=== PATIENT | female | born 1960 | race Hispanic/Latino ===

== ENCOUNTER → 2016-07-02 | Outpatient (REF) | payer OTHER ==
[~2016-07-02] MED LIST: /GLIP10TAB OR; ACTO15TA OR; BYSTOLIC OR; CALCTAB22 OR; CARD4TAB2 OR; GLUC1000 OR; HYDR50TA7 OR; INSULANT SC; LIPI20TA OR; NOVOINJ3 SC; VASO20TA OR; VITAMIN D50000 UNT OR; [UNRECOGNIZED DRUG - REMARK] TOP
[2016-07-02 17:35] LABS: MEAN CORPUSCULAR HEMOGLOBIN 28.9 pg (27.0-33.0); MEAN CORPUSCULAR HGB CONC 32.1 g/dl (32.0-36.5); MEAN CORPUSCULAR VOLUME 89.9 fl (80.0-96.0); RED CELL DISTRIBUTION WIDTH 12.6 % (11.5-14.5); WHITE BLOOD COUNT 6.4 K/mm3 (4.0-10.0)
[2016-07-02 17:38] LABS: ALBUMIN 3.6 GM/DL (3.2-5.2); CALCIUM LEVEL 9.4 MG/DL (8.5-10.1); CREATININE FOR GFR 2.01 MG/DL (0.55-1.02); GLOMERULAR FILTRATION RATE 27.3 (>51); PHOSPHORUS LEVEL 3.7 MG/DL (2.5-4.9); POTASSIUM SERUM 4.6 MEQ/L (3.5-5.1)
== END ==
LOC: M LABDRAW1 16:38
PROVIDERS: ATTEND Nurse Practitioner Family
DX: N18.3 Chronic kidney disease, stage 3 (moderate) (principal); D63.1 Anemia in chronic kidney disease; N25.81 Secondary hyperparathyroidism of renal origin

== ENCOUNTER → 2016-07-02 | Outpatient (REF) | payer OTHER | LOC: M LABDRAW1 16:37 | PROVIDERS: ATTEND Physician Assistant Medical | DX: E11.22 Type 2 diabetes mellitus with diabetic chronic kidney disease (principal); E78.00 Pure hypercholesterolemia, unspecified ==

== ENCOUNTER → 2016-08-10 | Outpatient (REF) | payer OTHER ==
[2016-08-10 12:19] LABS: ALBUMIN 3.5 GM/DL (3.2-5.2); ALBUMIN/GLOBULIN RATIO 0.92 (1.00-1.93); BILIRUBIN,TOTAL 0.2 MG/DL (0.2-1.0); CALCIUM LEVEL 9.1 MG/DL (8.5-10.1); CREATININE FOR GFR 1.52 MG/DL (0.55-1.02); GLOMERULAR FILTRATION RATE 37.7 (>51); POTASSIUM SERUM 3.8 MEQ/L (3.5-5.1); TOTAL PROTEIN 7.3 GM/DL (6.4-8.2)
== END ==
LOC: M LABDRAW1 11:26
PROVIDERS: ATTEND Family Medicine
DX: E78.2 Mixed hyperlipidemia (principal); I10 Essential (primary) hypertension; E11.22 Type 2 diabetes mellitus with diabetic chronic kidney disease

== ENCOUNTER → 2017-01-14 | Outpatient (REF) | payer OTHER | LOC: M LABDRAW1 15:39 | PROVIDERS: ATTEND Family Medicine | DX: Z13.89 Encounter for screening for other disorder (principal); I10 Essential (primary) hypertension ==

== ENCOUNTER → 2017-04-09 | Outpatient (CLI) | payer OTHER ==
--- NOTE | 2017-04-09 12:47 | REPMRS ---
Patient History The patient states she has not had a clinical breast exam in over a year. Patient is postmenopausal. No known family history of cancer. Digital Woman Screen Mammo: April 09, 2017 - Exam #: [id number] Bilateral CC and MLO view(s) were taken. Technologist: Janet Molina, Technologist Prior study comparison: April 10, 2016, digital woman screen mammo performed at [facility]. February 23, 2015, digital woman screen mammo performed at [facility]. FINDINGS: There are scattered fibroglandular densities. There has been no change in the appearance of the mammogram from the prior studies. There are scant residual fibroglandular tissue which is fairly symmetric. There is no interval development of dominant mass, architectural distortion, or clustered microcalcification suggestive of malignancy. No significant changes when compared with prior studies. ASSESSMENT: BI-RADS/ACR category 1 mammogram. Negative. Recommendation Routine screening mammogram in 1 year (for women over age 40). This mammogram was interpreted with the aid of an FDA-approved computer-aided dectection system. A. Negative x-ray reports should not delay biopsy if a dominant or clinically suspicious mass is present. B. Four to eight percent of cancers are not identified by mammography. C. Adenosis and dense breast may obscure an underlying neoplasm. Electronically Signed By: Arian Ying MD 04/09/17 [id number]
== END ==
LOC: M WHC 10:48
PROVIDERS: ATTEND Family Medicine
DX: Z12.31 Encounter for screening mammogram for malignant neoplasm of breast (principal); Z78.0 Asymptomatic menopausal state

== ENCOUNTER → 2017-08-27 | Outpatient (CLI) | payer OTHER | LOC: M RAD 08:30 | DX: I87.312 Chronic venous hypertension (idiopathic) with ulcer of left lower extremity (principal) | CPT/HCPCS: 93970 ==

== ENCOUNTER → 2017-09-25 | Outpatient (CLI) | payer OTHER | LOC: M RAD 11:25 | DX: I87.313 Chronic venous hypertension (idiopathic) with ulcer of bilateral lower extremity (principal); R93.8 Abnormal findings on diagnostic imaging of other specified body structures | CPT/HCPCS: 93923 ==

== ENCOUNTER → 2017-10-01 | Outpatient (REF) | payer OTHER ==
[2017-10-01 12:56] LABS: CHOLESTEROL LEVEL 152 MG/DL (<200); CHOLESTEROL RISK RATIO 3.534 (<5); HDL CHOLESTEROL 43 MG/DL (>40); LDL CHOLESTEROL 94.6 MG/DL (<100); NON-HDL-C 109 MG/DL; TRIGLYCERIDES LEVEL 72 MG/DL (<150)
[2017-10-01 13:04] LABS: CREATININE, URINE 95.7 MG/DL; MAU/CREAT RATIO 6.2 MCG/MG (0.0-30.0)
== END ==
LOC: M LABDRAW1 11:50
DX: E11.22 Type 2 diabetes mellitus with diabetic chronic kidney disease (principal)

== ENCOUNTER → 2017-10-02 | Outpatient (REF) | payer OTHER | LOC: M LAB REF 13:09 | DX: I87.311 Chronic venous hypertension (idiopathic) with ulcer of right lower extremity (principal) ==

== ENCOUNTER 2017-10-04 15:19 | Emergency (ER) | payer OTHER ==
[2017-10-04] MEDS: MORPHINE 10 MG/ML 1ML VIAL (J2270) IM (16:25)
== END 2017-10-04 17:40 | disposition home or self-care (01) ==
LOC: M ED 15:19
DX: L97.919 Non-pressure chronic ulcer of unspecified part of right lower leg with unspecified severity (principal); L97.929 Non-pressure chronic ulcer of unspecified part of left lower leg with unspecified severity; Z98.890 Other specified postprocedural states; E11.9 Type 2 diabetes mellitus without complications; N18.9 Chronic kidney disease, unspecified; I12.9 Hypertensive chronic kidney disease with stage 1 through stage 4 chronic kidney disease, or unspecified chronic kidney disease; E07.9 Disorder of thyroid, unspecified; Z79.4 Long term (current) use of insulin; Z79.899 Other long term (current) drug therapy; Z88.5 Allergy status to narcotic agent
CPT/HCPCS: J2270

== ENCOUNTER → 2017-10-09 | Outpatient (REF) | payer OTHER | LOC: M SFHCPLAZ 18:13 | DX: L98.9 Disorder of the skin and subcutaneous tissue, unspecified (principal) ==

== ENCOUNTER → 2017-10-23 | Outpatient (CLI) | payer OTHER | LOC: M RAD 12:52 | DX: M77.32 Calcaneal spur, left foot (principal); L97.822 Non-pressure chronic ulcer of other part of left lower leg with fat layer exposed | CPT/HCPCS: 73590 ==

== ENCOUNTER 2017-10-31 11:00 | Inpatient (IN) | payer OTHER ==
[2017-10-31] MEDS ORDERED: fentaNYL 100 MCG/2 ML INJECTION (J3010) As Ordered ×3 (11:28→14:19)
[2017-10-31] MEDS ORDERED: MIDAZOLAM INJ 2 MG/2 ML VIAL (J2250) As Ordered (11:28)
[2017-10-31] MEDS ORDERED: LIDOCAINE 1% MDV 20ML VIAL SQ (11:30)
[2017-10-31] MEDS ORDERED: LR 1,000 ML IV (11:30)
[2017-10-31] MEDS ORDERED: PROPOFOL 200 MG/20 ML VIAL As Ordered ×3 (11:32→13:49)
[2017-10-31 11:48] LABS: BEDSIDE GLUCOSE 252 MG/DL (70-105)
[2017-10-31] MEDS ORDERED: LIDOCAINE 2% INJ 100 MG/5 ML SDV (FOR ANES.) As Ordered (11:53)
[2017-10-31] MEDS ORDERED: KETOROLAC 60 MG/2 ML VIAL (J1885) As Ordered (13:44)
[2017-10-31] MEDS: BUPIVACAINE HCL 0.5% 30 ML VIAL As Ordered (14:00)
[2017-10-31] MEDS: LIDOCAINE 1% SDV INJ 30 ML VIAL As Ordered (14:00)
[2017-10-31 14:14] LABS: BEDSIDE GLUCOSE 224 MG/DL (70-105)
[2017-10-31] MEDS: fentaNYL 100 MCG/2 ML INJECTION (J3010) IV ×4 (14:21→14:45)
[2017-10-31] MEDS ORDERED: HumaLOG INSULIN (NovoLOG) PER UNIT As Ordered (14:37)
[2017-10-31] MEDS ORDERED: NORCO, ANEXSIA 5/325MG TABLET (HYDROcodone/ACETAMINOPHEN) PO (14:45)
[2017-10-31] MEDS ORDERED: ONDANSETRON 4MG/2ML VIAL (J2405) IV (14:45)
[2017-10-31] MEDS: LR 1,000 ML IV (14:45)
[2017-10-31] MEDS: traMADol 50 MG TAB PO ×2 (14:48→22:24)
[2017-10-31] MEDS: HumaLOG INSULIN (NovoLOG) PER UNIT SC ×3 (14:52→21:22)
[2017-10-31] MEDS ORDERED: MORPHINE 4 MG/ML 1ML VIAL/SYRINGE (J2270) As Ordered ×2 (14:55→15:32)
[2017-10-31] MEDS: MORPHINE 10 MG/ML 1ML VIAL (J2270) IV ×3 (15:03→15:33)
[2017-10-31] MEDS: hydroCHLOROthiazide 25 MG TAB PO (16:26)
[2017-10-31] MEDS ORDERED: GLUCAGON FOR INJ 1 MG VIAL (J1610) SC (16:45)
[2017-10-31] MEDS ORDERED: GLUCOSE 4 GM CHEW TABLET PO (16:45)
[2017-10-31] MEDS ORDERED: DEXTROSE 50% 50 ML SYRINGE IV (16:45)
[2017-10-31 17:08] LABS: BEDSIDE GLUCOSE 146 MG/DL (70-105)
[2017-10-31 19:56] LABS: BEDSIDE GLUCOSE 104 MG/DL (70-105)
[2017-11-01 06:36] LABS: BEDSIDE GLUCOSE 213 MG/DL (70-105)
[2017-11-01] MEDS: ATENOLOL 25 MG TAB PO (08:00)
[2017-11-01] MEDS: OYSTER SHELL CALCIUM 500 MG TAB PO (08:01)
[2017-11-01] MEDS: CINACALCET 30 MG TAB (SENSIPAR) PO (08:01)
[2017-11-01] MEDS: hydroCHLOROthiazide 25 MG TAB PO (08:01)
[2017-11-01] MEDS: HumaLOG INSULIN (NovoLOG) PER UNIT SC ×4 (09:43→21:09)
[2017-11-01] MEDS: traMADol 50 MG TAB PO ×3 (09:44→22:23)
[2017-11-01 11:21] LABS: BEDSIDE GLUCOSE 280 MG/DL (70-105)
[2017-11-01 16:21] LABS: BEDSIDE GLUCOSE 217 MG/DL (70-105)
[2017-11-01 20:24] LABS: BEDSIDE GLUCOSE 168 MG/DL (70-105)
[2017-11-02] MEDS: traMADol 50 MG TAB PO ×3 (06:03→21:30)
[2017-11-02 06:41] LABS: BEDSIDE GLUCOSE 177 MG/DL (70-105)
[2017-11-02] MEDS: hydroCHLOROthiazide 25 MG TAB PO (10:21)
[2017-11-02] MEDS: HumaLOG INSULIN (NovoLOG) PER UNIT SC ×4 (10:21→22:08)
[2017-11-02] MEDS: CINACALCET 30 MG TAB (SENSIPAR) PO (10:21)
[2017-11-02] MEDS: OYSTER SHELL CALCIUM 500 MG TAB PO (10:26)
[2017-11-02] MEDS: ATENOLOL 25 MG TAB PO (10:26)
[2017-11-02 11:26] LABS: BEDSIDE GLUCOSE 208 MG/DL (70-105)
[2017-11-02] MEDS: ONDANSETRON 4MG/2ML VIAL (J2405) IV (14:22)
[2017-11-02 16:48] LABS: BEDSIDE GLUCOSE 131 MG/DL (70-105)
[2017-11-02 21:39] LABS: BEDSIDE GLUCOSE 169 MG/DL (70-105)
[2017-11-03] MEDS: traMADol 50 MG TAB PO ×3 (05:53→21:05)
[2017-11-03 06:30] LABS: BEDSIDE GLUCOSE 231 MG/DL (70-105)
[2017-11-03] MEDS: CINACALCET 30 MG TAB (SENSIPAR) PO (09:03)
[2017-11-03] MEDS: hydroCHLOROthiazide 25 MG TAB PO (09:04)
[2017-11-03] MEDS: OYSTER SHELL CALCIUM 500 MG TAB PO (09:04)
[2017-11-03] MEDS: ATENOLOL 25 MG TAB PO (09:04)
[2017-11-03] MEDS: HumaLOG INSULIN (NovoLOG) PER UNIT SC ×4 (09:05→21:10)
[2017-11-03 11:59] LABS: BEDSIDE GLUCOSE 145 MG/DL (70-105)
[2017-11-03 16:57] LABS: BEDSIDE GLUCOSE 182 MG/DL (70-105)
[2017-11-03 20:02] LABS: BEDSIDE GLUCOSE 143 MG/DL (70-105)
[2017-11-04] MEDS: traMADol 50 MG TAB PO ×4 (04:30→23:59)
[2017-11-04 05:56] LABS: BEDSIDE GLUCOSE 162 MG/DL (70-105)
[2017-11-04] MEDS: hydroCHLOROthiazide 25 MG TAB PO (08:03)
[2017-11-04] MEDS: ATENOLOL 25 MG TAB PO (08:04)
[2017-11-04] MEDS: OYSTER SHELL CALCIUM 500 MG TAB PO (08:04)
[2017-11-04] MEDS: CINACALCET 30 MG TAB (SENSIPAR) PO (08:04)
[2017-11-04] MEDS: HumaLOG INSULIN (NovoLOG) PER UNIT SC ×4 (08:04→20:40)
[2017-11-04 12:00] LABS: BEDSIDE GLUCOSE 188 MG/DL (70-105)
[2017-11-04 16:26] LABS: BEDSIDE GLUCOSE 189 MG/DL (70-105)
[2017-11-04 20:02] LABS: BEDSIDE GLUCOSE 172 MG/DL (70-105)
[2017-11-05 06:20] LABS: BEDSIDE GLUCOSE 160 MG/DL (70-105)
[2017-11-05] MEDS: hydroCHLOROthiazide 25 MG TAB PO (09:06)
[2017-11-05] MEDS: ATENOLOL 25 MG TAB PO (09:07)
[2017-11-05] MEDS: traMADol 50 MG TAB PO ×3 (09:07→22:55)
[2017-11-05] MEDS: CINACALCET 30 MG TAB (SENSIPAR) PO (09:07)
[2017-11-05] MEDS: HumaLOG INSULIN (NovoLOG) PER UNIT SC ×4 (09:08→20:36)
[2017-11-05] MEDS: OYSTER SHELL CALCIUM 500 MG TAB PO (09:08)
[2017-11-05] MEDS: DULoxetine 20 MG CAP (CYMBALTA) PO (09:08)
[2017-11-05 11:32] LABS: BEDSIDE GLUCOSE 177 MG/DL (70-105)
[2017-11-05] MEDS: MORPHINE 30 MG TAB **MSIR PO (15:34)
[2017-11-05 16:59] LABS: BEDSIDE GLUCOSE 193 MG/DL (70-105)
[2017-11-05 20:00] LABS: BEDSIDE GLUCOSE 176 MG/DL (70-105)
[2017-11-06 06:22] LABS: BEDSIDE GLUCOSE 177 MG/DL (70-105)
[2017-11-06] MEDS: OYSTER SHELL CALCIUM 500 MG TAB PO (08:09)
[2017-11-06] MEDS: traMADol 50 MG TAB PO ×3 (08:10→21:14)
[2017-11-06] MEDS: DULoxetine 20 MG CAP (CYMBALTA) PO (08:10)
[2017-11-06] MEDS: ATENOLOL 25 MG TAB PO (08:10)
[2017-11-06] MEDS: hydroCHLOROthiazide 25 MG TAB PO (08:10)
[2017-11-06] MEDS: HumaLOG INSULIN (NovoLOG) PER UNIT SC ×4 (08:11→21:00)
[2017-11-06] MEDS: CINACALCET 30 MG TAB (SENSIPAR) PO (08:11)
[2017-11-06 11:34] LABS: BEDSIDE GLUCOSE 144 MG/DL (70-105)
[2017-11-06] MEDS: MORPHINE 30 MG TAB **MSIR PO (12:34)
[2017-11-06 16:40] LABS: BEDSIDE GLUCOSE 198 MG/DL (70-105)
[2017-11-06 20:17] LABS: BEDSIDE GLUCOSE 213 MG/DL (70-105)
[2017-11-06] MEDS: DOCUSATE SODIUM 100 MG CAP PO (21:13)
[2017-11-06] MEDS ORDERED: traMADol 50 MG TAB As Ordered (21:16)
[2017-11-07] MEDS: traMADol 50 MG TAB PO ×3 (04:58→22:08)
[2017-11-07 07:45] LABS: BEDSIDE GLUCOSE 176 MG/DL (70-105)
[2017-11-07] MEDS: HumaLOG INSULIN (NovoLOG) PER UNIT SC ×4 (07:53→21:00)
[2017-11-07] MEDS: CINACALCET 30 MG TAB (SENSIPAR) PO (09:28)
[2017-11-07] MEDS: OYSTER SHELL CALCIUM 500 MG TAB PO (09:28)
[2017-11-07] MEDS: DOCUSATE SODIUM 100 MG CAP PO ×2 (09:28→22:08)
[2017-11-07] MEDS: DULoxetine 20 MG CAP (CYMBALTA) PO (09:28)
[2017-11-07] MEDS: hydroCHLOROthiazide 25 MG TAB PO (09:29)
[2017-11-07] MEDS: ATENOLOL 25 MG TAB PO (09:30)
[2017-11-07] MEDS: MORPHINE 30 MG TAB **MSIR PO (09:53)
[2017-11-07 11:34] LABS: BEDSIDE GLUCOSE 190 MG/DL (70-105)
[2017-11-07 16:29] LABS: BEDSIDE GLUCOSE 180 MG/DL (70-105)
[2017-11-07 22:03] LABS: BEDSIDE GLUCOSE 189 MG/DL (70-105)
[2017-11-08 07:21] LABS: BEDSIDE GLUCOSE 161 MG/DL (70-105)
[2017-11-08] MEDS: DOCUSATE SODIUM 100 MG CAP PO (08:25)
[2017-11-08] MEDS: OYSTER SHELL CALCIUM 500 MG TAB PO (08:25)
[2017-11-08] MEDS: ATENOLOL 25 MG TAB PO (08:25)
[2017-11-08] MEDS: DULoxetine 20 MG CAP (CYMBALTA) PO (08:25)
[2017-11-08] MEDS: hydroCHLOROthiazide 25 MG TAB PO (08:25)
[2017-11-08] MEDS: CINACALCET 30 MG TAB (SENSIPAR) PO (08:25)
[2017-11-08] MEDS: HumaLOG INSULIN (NovoLOG) PER UNIT SC ×2 (08:26→12:17)
[2017-11-08 10:39] LABS: HEMATOCRIT 31.7 % (36.0-47.0); HEMOGLOBIN 10.3 g/dl (12.0-15.5); MEAN CORPUSCULAR HEMOGLOBIN 28.5 pg (27.0-33.0); MEAN CORPUSCULAR HGB CONC 32.5 g/dl (32.0-36.5); MEAN CORPUSCULAR VOLUME 87.8 fl (80.0-96.0); PLATELET COUNT, AUTOMATED 414 10^3/uL (150-450); RED BLOOD COUNT 3.61 10^6/uL (4.00-5.40); RED CELL DISTRIBUTION WIDTH 13.3 % (11.5-14.5); WHITE BLOOD COUNT 15.5 10^3/uL (4.0-10.0)
[2017-11-08] MEDS: BISACODYL 10 MG SUPP PR (11:00)
[2017-11-08] MEDS ORDERED: BISACODYL 10 MG SUPP PR (11:00)
[2017-11-08 11:10] LABS: ANION GAP 10 MEQ/L (8-16); BLOOD UREA NITROGEN 34 MG/DL (7-18); CALCIUM LEVEL 9.4 MG/DL (8.5-10.1); CARBON DIOXIDE LEVEL 29 MEQ/L (21-32); CHLORIDE LEVEL 96 MEQ/L (98-107); CREATININE FOR GFR 1.55 MG/DL (0.55-1.30); GLOMERULAR FILTRATION RATE 36.7 (>51); GLUCOSE, FASTING 185 MG/DL (70-100); POTASSIUM SERUM 3.8 MEQ/L (3.5-5.1); SODIUM LEVEL 135 MEQ/L (136-145)
[2017-11-08 12:00] LABS: BEDSIDE GLUCOSE 148 MG/DL (70-105)
[2017-11-08] MEDS: MOM 30ML SUSPENSION UDC PO (12:17)
[2017-11-08] MEDS ORDERED: DOCUSATE SODIUM 100 MG CAP PO (16:00)
== END 2017-11-08 16:50 | disposition home health service (06) | DRG 197 ==
LOC: M SDC 11:00 → M MSPAV 16:00 → M SDC 11-01 14:52 → M MSPAV 11-01 14:53
PROVIDERS: Surgery Vascular Surgery
PROC: 0JBP0ZZ Excision of Left Lower Leg Subcutaneous Tissue and Fascia, Open Approach (ICD-10-PCS; principal; 2017-10-31 12:30)
PROC: 0JBN0ZZ Excision of Right Lower Leg Subcutaneous Tissue and Fascia, Open Approach (ICD-10-PCS; 2017-10-31 12:30)
DX: I87.313 Chronic venous hypertension (idiopathic) with ulcer of bilateral lower extremity (principal); E11.22 Type 2 diabetes mellitus with diabetic chronic kidney disease; L97.929 Non-pressure chronic ulcer of unspecified part of left lower leg with unspecified severity; L97.919 Non-pressure chronic ulcer of unspecified part of right lower leg with unspecified severity; I12.9 Hypertensive chronic kidney disease with stage 1 through stage 4 chronic kidney disease, or unspecified chronic kidney disease; B96.89 Other specified bacterial agents as the cause of diseases classified elsewhere; B95.0 Streptococcus, group A, as the cause of diseases classified elsewhere; B95.61 Methicillin susceptible Staphylococcus aureus infection as the cause of diseases classified elsewhere; E03.9 Hypothyroidism, unspecified; N18.9 Chronic kidney disease, unspecified; Z88.5 Allergy status to narcotic agent; Z79.4 Long term (current) use of insulin; Z79.891 Long term (current) use of opiate analgesic; Z79.899 Other long term (current) drug therapy

== ENCOUNTER → 2017-11-20 | Outpatient (REF) | payer OTHER ==
[2017-11-20 18:09] LABS: HEMATOCRIT 31.1 % (36.0-47.0); HEMOGLOBIN 9.5 g/dl (12.0-15.5); MEAN CORPUSCULAR HEMOGLOBIN 28.3 pg (27.0-33.0); MEAN CORPUSCULAR HGB CONC 30.5 g/dl (32.0-36.5); MEAN CORPUSCULAR VOLUME 92.6 fl (80.0-96.0); PLATELET COUNT, AUTOMATED 456 10^3/uL (150-450); RED BLOOD COUNT 3.36 10^6/uL (4.00-5.40); RED CELL DISTRIBUTION WIDTH 14.1 % (11.5-14.5); WHITE BLOOD COUNT 13.3 10^3/uL (4.0-10.0)
[2017-11-20 18:22] LABS: INR 1.04; PROTHROMBIN TIME 13.7 SECONDS (12.1-14.4)
[2017-11-20 18:26] LABS: ALBUMIN 2.9 GM/DL (3.2-5.2); ALBUMIN/GLOBULIN RATIO 0.62 (1.00-1.93); ALKALINE PHOSPHATASE 114 U/L (45-117); ALT/SGPT 16 U/L (12-78); ANION GAP 8 MEQ/L (8-16); AST/SGOT 10 U/L (7-37); BILIRUBIN,TOTAL 0.2 MG/DL (0.2-1.0); BLOOD UREA NITROGEN 19 MG/DL (7-18); C REACTIVE PROTEIN QUANTITATIV 4.49 MG/DL (0.00-0.30); CALCIUM LEVEL 9.1 MG/DL (8.5-10.1); CARBON DIOXIDE LEVEL 28 MEQ/L (21-32); CHLORIDE LEVEL 102 MEQ/L (98-107); CREATININE FOR GFR 1.47 MG/DL (0.55-1.30); GLUCOSE, FASTING 141 MG/DL (70-100); POTASSIUM SERUM 4.2 MEQ/L (3.5-5.1); SODIUM LEVEL 138 MEQ/L (136-145); TOTAL PROTEIN 7.6 GM/DL (6.4-8.2)
[2017-11-20 18:48] LABS: ESTIMATED AVERAGE GLUCOSE 194 MG/DL (60-110); HEMOGLOBIN A1c 8.4 %
[2017-11-20 19:46] LABS: ERYTHROCYTE SEDIMENTATION RATE 121 mm/hr (0-30)
[2017-11-22 13:33] LABS: ANTINUCLEAR ANTIBODIES DIRECT Negative (Negative)
== END ==
LOC: M LAB REF 17:02
DX: I87.311 Chronic venous hypertension (idiopathic) with ulcer of right lower extremity (principal)
CPT/HCPCS: 84443

== ENCOUNTER → 2017-12-12 | Outpatient (REF) | payer OTHER ==
[2017-12-12 16:10] LABS: CPK CREATINE PHOSPHOKINASE 62 U/L (26-192)
[2017-12-12 16:10] LABS: TOTAL PROTEIN 8.4 GM/DL (6.4-8.2)
[2017-12-12 16:16] LABS: ESTIMATED AVERAGE GLUCOSE 163 MG/DL (60-110); HEMOGLOBIN A1c 7.3 %
[2017-12-12 16:22] LABS: FOLATE 10.1 NG/ML; VITAMIN B12 LEVEL 635 PG/ML
[2017-12-17 12:11] LABS: ALBUMIN 3.43 GM/DL (3.29-5.55); ALBUMIN % 40.8 % (55.8-66.1); ALPHA-1-GLOBULIN % 6.1 % (2.9-4.9); ALPHA-1-GLOBULINS 0.51 GM/DL (0.17-0.41); ALPHA-2-GLOBULINS 1.39 GM/DL (0.42-0.99); ALPHA-2-GLOBULINS % 16.5 % (7.1-11.8); BETA-1-GLOBULINS 0.56 GM/DL (0.28-0.60); BETA-1-GLOBULINS % 6.7 % (4.7-7.2); BETA-2-GLOBULINS 0.95 GM/DL (0.19-0.55); BETA-2-GLOBULINS % 11.3 % (3.2-6.5); GAMMA GLOBULIN % 18.6 % (11.1-18.8); GAMMA GLOBULINS 1.56 GM/DL (0.65-1.58)
[2017-12-19 08:06] LABS: ACETYLCHOLINE RCPTOR BINDING A < 0.03 nmol/L (0.00-0.24); CERULOPLASMIN 48.3 mg/dL (19.0-39.0); COPPER PLASMA 189 ug/dL (72-166); LEAD BLOOD ADULT 2 ug/dL (0-4); MERCURY LEVEL None Detected ug/L (0.0-14.9); VITAMIN B1 LEVEL WHOLE BLOOD 89.4 nmol/L (66.5-200.0); VITAMIN B6,PYRIDOXAL PHOSPHATE 1.9 ug/L (2.0-32.8); VITAMIN E(ALPHA TOCOPHEROL) 9.4 mg/L (7.0-25.1); VITAMIN E(GAMMA TOCOPHEROL) 1.3 mg/L (0.5-5.5)
== END ==
LOC: M LABDRAW1 15:26
DX: G62.9 Polyneuropathy, unspecified (principal); E11.9 Type 2 diabetes mellitus without complications; R53.1 Weakness
CPT/HCPCS: 82525

== ENCOUNTER → 2018-01-13 | Outpatient (REF) | payer OTHER ==
[2018-01-13 20:15] LABS: BASO # 0.1 10^3/uL (0.0-0.2); BASO % 0.9 % (0.0-1.0); EOS # 0.2 10^3/uL (0.0-0.50); EOS % 1.4 % (0.0-3.0); HEMATOCRIT 32.6 % (36.0-47.0); IMMATURE GRANULOCYTE % 0.3 % (0-3.0); LYMPH # 3.1 10^3/uL (1.5-4.5); LYMPH % 29.8 % (24.0-44.0); MEAN CORPUSCULAR HEMOGLOBIN 28.2 pg (27.0-33.0); MEAN CORPUSCULAR HGB CONC 30.7 g/dl (32.0-36.5); MEAN CORPUSCULAR VOLUME 92.1 fl (80.0-96.0); MONO # 0.5 10^3/uL (0.0-0.8); MONO % 5.2 % (0.0-5.0); NEUTROPHILS # 6.5 10^3/uL (1.8-7.7); NEUTROPHILS % 62.4 % (36.0-66.0); PLATELET COUNT, AUTOMATED 352 10^3/uL (150-450); RED BLOOD COUNT 3.54 10^6/uL (4.00-5.40); RED CELL DISTRIBUTION WIDTH 16.4 % (11.5-14.5); WHITE BLOOD COUNT 10.4 10^3/uL (4.0-10.0)
[2018-01-13 20:20] LABS: APPEARANCE, URINE CLEAR (CLEAR); BACTERIA, URINE AUTO NEGATIVE (NEGATIVE); BILIRUBIN, URINE AUTO NEGATIVE (NEGATIVE); BLOOD, URINE BLOOD NEGATIVE (NEGATIVE); COLOR, URINE YELLOW (YELLOW); GLUCOSE, URINE (UA) AUTO NEGATIVE (NEGATIVE); KETONE, URINE AUTO NEGATIVE (NEGATIVE); LEUKOCYTE ESTERASE, URINE AUTO TRACE (NEGATIVE); MUCUS, URINE SMALL (NEGATIVE); NITRITE, URINE AUTO NEGATIVE (NEGATIVE); PROTEIN, URINE AUTO NEGATIVE (NEGATIVE); RBC, URINE AUTO 1 /HPF (0-3); SPECIFIC GRAVITY URINE AUTO 1.012 (1.002-1.035); SQUAMOUS EPITHELIAL CELL UR AU 2 /HPF (0-6); UROBILINOGEN, URINE AUTO 0.2 mg/dL (0.0-2.0); WBC, URINE AUTO 2 /HPF (0-3)
[2018-01-13 21:16] LABS: ERYTHROCYTE SEDIMENTATION RATE 82 mm/hr (0-30)
[2018-01-13 22:15] LABS: ALBUMIN 3.5 GM/DL (3.2-5.2); ALKALINE PHOSPHATASE 91 U/L (45-117); ALT/SGPT 13 U/L (12-78); ANION GAP 7 MEQ/L (8-16); AST/SGOT 11 U/L (7-37); BILIRUBIN,TOTAL 0.3 MG/DL (0.2-1.0); BLOOD UREA NITROGEN 23 MG/DL (7-18); C REACTIVE PROTEIN QUANTITATIV 1.59 MG/DL (0.00-0.30); CALCIUM LEVEL 9.8 MG/DL (8.5-10.1); CARBON DIOXIDE LEVEL 28 MEQ/L (21-32); CHLORIDE LEVEL 105 MEQ/L (98-107); COMPLEMENT C3 137 MG/DL (90-180); CPK CREATINE PHOSPHOKINASE 51 U/L (26-192); CREATININE FOR GFR 1.22 MG/DL (0.55-1.30); GLOMERULAR FILTRATION RATE 48.2 (>51); GLUCOSE, FASTING 92 MG/DL (70-100); POTASSIUM SERUM 3.9 MEQ/L (3.5-5.1); RHEUMATOID FACTOR QUANT < 10.0 IU/ML (<15.0); SODIUM LEVEL 140 MEQ/L (136-145); TOTAL PROTEIN 7.8 GM/DL (6.4-8.2)
[2018-01-13 23:58] LABS: ALBUMIN/GLOBULIN RATIO 0.81 (1.00-1.93)
[2018-01-14 02:49] LABS: CREATININE,RANDOM URINE 70.1 MG/DL
[2018-01-14 11:15] LABS: DRVV SCREEN 41.7 SEC
[2018-01-15 13:31] LABS: CRYOGLOBULINS NEGATIVE (NEGATIVE)
[2018-01-16 00:07] LABS: QUANTIFERON GOLD TB Negative (Negative); TB Test (QFT) Antigen 0.03 IU/mL (.); TB Test (QFT) Antigen Minus Ni <0.01 IU/mL (.); TB Test (QFT) Mitogen 6.91 IU/mL (.); TB Test (QFT) Nil 0.04 IU/mL (.)
[2018-01-17 00:06] LABS: BETA 2 MICROGLOBULIN 3.2 mg/L (0.6-2.4)
[2018-01-17 00:06] LABS: ANA (HEP2) Negative (.); ANTI DOUBLE STRAND-DNA AB <1 IU/mL (0-9); ANTI THROMBIN 3 ANTIGEN IMMUNO 105 % (72-124); ANTI THROMBIN 3 FUNCT ACTIVITY 117 % (75-135); Antimyeloperxidase(MPO) Abs <9.0 U/mL (0.0-9.0); Antiproteinase 3 (PR-3) Abs <3.5 U/mL (0.0-3.5); CARDIOLIPIN IGA ANTIBODY <9 APL U/mL (0-11); CARDIOLIPIN IGG ANTIBODY <9 GPL U/mL (0-14); CARDIOLIPIN IGM ANTIBODY <9 MPL U/mL (0-12); CYCLIC CITRULLINATED PEPTIDE 9 units (0-19); Cytoplasmic (C-ANCA) <1:20 titer (Neg:<1:20); PROTEIN C FUNCTIONAL ACTIVITY 169 % (73-180); PROTEIN S FUNCTIONAL ACTIVITY 77 % (63-140); Perinuclear (P-ANCA) <1:20 titer (Neg:<1:20); RNP ANTIBODY < 0.2 AI (0.0-0.9); SMITHS ANTIBODY < 0.2 AI (0.0-0.9); SSA SJOGRENS A <0.2 AI (0.0-0.9); SSB SJOGRENS B <0.2 AI (0.0-0.9)
[2018-01-17 16:30] LABS: PROCALCITONIN <0.05 NG/ML (<0.10)
== END ==
LOC: M SFHCLERA 14:20
DX: I77.6 Arteritis, unspecified (principal)
CPT/HCPCS: 82550

== ENCOUNTER → 2018-01-20 | Outpatient (REF) | payer OTHER ==
[2018-01-20 16:22] LABS: INR 0.97
[2018-01-20 16:23] LABS: PARTIAL THROMBOPLASTIN TIME 30.5 SECONDS (25.4-37.6)
[2018-01-22 10:30] LABS: HEPATITIS C VIRUS ABY INDEX 0.1 INDEX (<0.8)
[2018-01-22 10:30] LABS: HEPATITIS A ANTIBODY IGM NEGATIVE (NEGATIVE); HEPATITIS B CORE ANTIBODY IGM NEGATIVE (NEGATIVE); HEPATITIS B SURFACE ANTIGEN NEGATIVE (NEGATIVE)
[2018-01-23 00:06] LABS: G6PD2 3.49 x10E6/uL (3.77-5.28); G6PD3 279 (146-376)
== END ==
LOC: M SFHCPLAZ 13:41
DX: L95.0 Livedoid vasculitis (principal)

== ENCOUNTER → 2018-04-08 | Outpatient (CLI) | payer OTHER, MEDICAID | LOC: M WHC 08:53 | DX: Z12.31 Encounter for screening mammogram for malignant neoplasm of breast (principal); Z78.0 Asymptomatic menopausal state | CPT/HCPCS: 77067 ==

== ENCOUNTER → 2018-10-06 | Outpatient (REF) | payer OTHER ==
[~2018-10-06] MED LIST changes: -/GLIP10TAB OR; +/GLIP10TAB PO; +ATEN25TA PO; -CARD4TAB2 OR; +CARD4TAB2 PO; +CINA30TA4 PO; +DOXA4TAB2 PO; +DOXY100T16 PO; +DULO1CAP PO; +GABA-1171 PO; +GABA-845 PO; +GLIP5TAB8 PO; +HYDR25TAB PO; +LISI40TA PO; +OYST500T7 PO; +PENT400T47 PO; +TOUJ1.2I SC; +TRAD5TAB PO; +TRAM50TA2 PO; -VITAMIN D50000 UNT OR; +VITAMIN D50000 UNT PO
[2018-10-06 12:42] LABS: CHOLESTEROL RISK RATIO 3.717 (<5)
== END ==
LOC: M LABDRAW1 11:12
PROVIDERS: ATTEND Nurse Practitioner Family
DX: E78.00 Pure hypercholesterolemia, unspecified (principal)

== ENCOUNTER → 2019-02-04 | Outpatient (REF) | payer OTHER ==
[~2019-02-04] MED LIST changes: +DOXY100C37 PO; -DULO1CAP PO; +DULO1CAP4 PO
[2019-02-04 16:52] LABS: ALBUMIN 3.6 GM/DL (3.2-5.2); BILIRUBIN,TOTAL 0.3 MG/DL (0.2-1.0); CALCIUM LEVEL 8.9 MG/DL (8.5-10.1); CHOLESTEROL RISK RATIO 2.545 (<5); CREATININE FOR GFR 1.53 MG/DL (0.55-1.30); POTASSIUM SERUM 5.4 MEQ/L (3.5-5.1); TOTAL PROTEIN 7.6 GM/DL (6.4-8.2)
[2019-02-04 17:23] LABS: MALB URINE SIEMENS 6.1 MG/L; MAU/CREAT RATIO 4.8 MCG/MG (0.0-30.0)
== END ==
LOC: M LABDRAW1 15:48
PROVIDERS: ATTEND Nurse Practitioner Family
DX: E78.00 Pure hypercholesterolemia, unspecified (principal); E11.22 Type 2 diabetes mellitus with diabetic chronic kidney disease

== ENCOUNTER → 2019-04-15 | Outpatient (REF) | payer OTHER ==
[~2019-04-15] MED LIST changes: -DOXY100T16 PO; +DOXY100T27 PO
== END ==
LOC: M LABDRAW1 08:58
PROVIDERS: ATTEND Family Medicine
DX: M12.9 Arthropathy, unspecified (principal)

== ENCOUNTER → 2019-05-20 | Outpatient (CLI) | payer OTHER ==
--- NOTE | 2019-05-20 10:47 | REPMRS ---
Patient History The patient states she has not had a clinical breast exam in over a year. No known family history of cancer. No Hormone Replacement Therapy Digital Woman Screen Mammo: May 20, 2019 - Exam #: [id number] Bilateral CC and MLO view(s) were taken. Technologist: Jolene Card, Technologist Prior study comparison: April 08, 2018, bilateral digital woman screen mammo performed at [facility]. April 09, 2017, digital woman screen mammo performed at [facility]. April 10, 2016, digital woman screen mammo performed at [facility]. FINDINGS: There are scattered fibroglandular densities. There has been no change in the appearance of the mammogram from the prior studies. There is a mild amount of scattered fibroglandular density which is fairly symmetric. There is no interval development of dominant mass, architectural distortion, or grouped microcalcification suggestive of malignancy. 3-D tomosynthesis shows no additional findings. Assessment: BI-RADS/ACR category 1 mammogram. Negative Mammogram. Recommendation Routine screening mammogram of both breasts in 1 year (for women over age 40). This patient's Lifetime Breast Cancer Risk is estimated at 5.9 %. This mammogram was interpreted with the aid of an FDA-approved computer-aided dectection system. Electronically Signed By: Sunil Rees MD 05/20/19 [id number]
== END ==
LOC: M WHC 08:56
PROVIDERS: ATTEND Family Medicine
DX: Z12.31 Encounter for screening mammogram for malignant neoplasm of breast (principal)

== ENCOUNTER → 2019-06-30 | Outpatient (CLI) | payer OTHER ==
[~2019-06-30] MED LIST changes: +ATOR1TAB19 PO; +CALC1CAP31 PO; +MAGN400T2 PO; +OYST500T94 PO
--- NOTE | 2019-06-30 15:16 | REP ---
Pelvis survey for monoclonal gammopathy: Skull AP and lateral views: There are no lytic lesions. Cervical spine, AP and lateral views: There are no lytic lesions. Vertebral body heights, interspacing alignment are normal. Thoracic spine AP and lateral views: There are no lytic lesions. There is multilevel degenerative disc disease throughout the thoracic spine. Lumbar spine AP and lateral views: Vertebral body heights and alignment are normal. There is mild degenerative disc disease throughout the lumbar spine. There are no lytic lesions. AP pelvis and hips: There are no lytic lesions. The spaces are unremarkable. Mineralization is normal. Bilateral humeri: Mineralization is normal. There are no lytic lesions. Bilateral femurs: Mineralization is normal. There are no lytic lesions. Electronically Signed by Luis Hsu MD 06/30/2019 03:07 P
== END ==
LOC: M RAD 12:59
PROVIDERS: ATTEND Internal Medicine Hematology & Oncology
DX: D47.2 Monoclonal gammopathy (principal)

== ENCOUNTER → 2019-07-07 | Outpatient (REF) | payer OTHER ==
[2019-07-08 12:09] LABS: URINE TOTAL PROTEIN 12.1 MG/DL (0-12)
[2019-07-09 21:47] LABS: TOTAL VOLUME, URINE 1000 ML
== END ==
LOC: M LAB REF 11:31
PROVIDERS: ATTEND Internal Medicine Hematology & Oncology
DX: D47.2 Monoclonal gammopathy (principal)

== ENCOUNTER → 2019-12-15 | Outpatient (REF) | payer OTHER ==
[~2019-12-15] MED LIST changes: -OYST500T7 PO; +OYST500T8 PO
[2020-01-29 22:17] LABS: MAGNESIUM URINE RANDOM 2.8 MG/DL
== END ==
LOC: M LAB REF 16:01
PROVIDERS: ATTEND Nurse Practitioner Family
DX: E83.42 Hypomagnesemia (principal); N18.3 Chronic kidney disease, stage 3 (moderate)

== ENCOUNTER → 2020-05-27 | Outpatient (CLI) | payer OTHER ==
[~2020-05-27] MED LIST changes: +HYDR-3490 PO; -HYDR25TAB PO; -LISI40TA PO; +LISI40TA4 PO
--- NOTE | 2020-05-27 12:46 | REPMRS ---
Patient History The patient states she has not had a clinical breast exam in over a year. No known family history of cancer. No Hormone Replacement Therapy 3D TOMOSYNTHESIS WAS PERFORMED. [facility] lifetime [facility] for [facility] cancer is 5.7%. Volpara breast density a. Digital Woman Screen Mammo: May 27, 2020 - Exam #: [id number] Bilateral CC and MLO view(s) were taken. Technologist: Jolene Card, Technologist Prior study comparison: May 20, 2019, bilateral digital woman screen mammo performed at [facility]. April 08, 2018, bilateral digital woman screen mammo performed at [facility]. FINDINGS: There are scattered fibroglandular densities. There has been no change in the appearance of the mammogram from the prior studies. There is a mild amount of residual fibroglandular tissue which is fairly symmetric. There is no interval development of dominant mass, architectural distortion, or clustered microcalcification suggestive of malignancy. Assessment: BI-RADS/ACR category 1 mammogram. Negative Mammogram. Recommendation Routine screening mammogram in 1 year (for women over age 40). This mammogram was interpreted with the aid of an FDA-approved computer-aided dectection system. Electronically Signed By: Luis Duron MD 05/27/20 [id number]
== END ==
LOC: M WHC 10:25
PROVIDERS: ATTEND Family Medicine
DX: Z12.31 Encounter for screening mammogram for malignant neoplasm of breast (principal)

== ENCOUNTER → 2020-05-27 | Outpatient (CLI) | payer OTHER ==
[2020-05-27 13:49] LABS: ALBUMIN 3.6 GM/DL (3.2-5.2); BILIRUBIN,TOTAL 0.2 MG/DL (0.2-1.0); CALCIUM LEVEL 9.6 MG/DL (8.8-10.2); CHOLESTEROL RISK RATIO 2.983 (<5); CREATININE FOR GFR 1.74 MG/DL (0.55-1.30); GLOMERULAR FILTRATION RATE 31.8 (>45); THYROID STIMULATING HORMONE 3.95 uIU/ML (0.358-3.740); TOTAL PROTEIN 7.5 GM/DL (6.4-8.2)
[2020-05-27 13:50] LABS: POTASSIUM SERUM 6.4 MEQ/L (3.5-5.1)
== END ==
LOC: M PLALAB 10:14
PROVIDERS: ATTEND Family Medicine
DX: E11.22 Type 2 diabetes mellitus with diabetic chronic kidney disease (principal); G47.9 Sleep disorder, unspecified

== ENCOUNTER → 2020-06-02 | Outpatient (CLI) | payer OTHER ==
[~2020-06-02] MED LIST changes: -HYDR-3490 PO; +HYDR25TAB PO; +LISI40TA PO; -LISI40TA4 PO
== END ==
LOC: M PLALAB 14:36
PROVIDERS: ATTEND Physician Assistant Medical
DX: E78.5 Hyperlipidemia, unspecified (principal)

== ENCOUNTER → 2020-09-05 | Outpatient (CLI) | payer OTHER ==
[~2020-09-05] MED LIST changes: +HYDR-3490 PO; -HYDR25TAB PO; -LISI40TA PO; +LISI40TA4 PO
[2020-09-05 12:04] LABS: HEMOGLOBIN A1c 10.2 %
[2020-09-05 12:11] LABS: ALBUMIN 3.4 GM/DL (3.2-5.2); BILIRUBIN,TOTAL 0.3 MG/DL (0.2-1.0); CHOLESTEROL RISK RATIO 2.327 (<5); CREATININE FOR GFR 1.5 MG/DL (0.55-1.30); GLOMERULAR FILTRATION RATE 37.7 (>45); POTASSIUM SERUM 4.8 MEQ/L (3.5-5.1); TOTAL PROTEIN 7.5 GM/DL (6.4-8.2)
== END ==
LOC: M PLALAB 09:08
PROVIDERS: ATTEND Nurse Practitioner Family
DX: E11.22 Type 2 diabetes mellitus with diabetic chronic kidney disease (principal); E78.00 Pure hypercholesterolemia, unspecified

== ENCOUNTER → 2020-09-06 | Outpatient (REF) | payer OTHER ==
[2020-09-06 14:40] LABS: MALB URINE SIEMENS 27.5 MG/L; MAU/CREAT RATIO 14.7 MCG/MG (0.0-30.0)
== END ==
LOC: M LAB REF 12:42
PROVIDERS: ATTEND Nurse Practitioner Family
DX: E11.22 Type 2 diabetes mellitus with diabetic chronic kidney disease (principal)

== ENCOUNTER → 2021-01-04 | Outpatient (REF) | payer OTHER ==
[~2021-01-04] MED LIST changes: -DOXY100C37 PO; +DOXY1CAP62 PO; +GABA-283 PO; -GABA-845 PO
== END ==
LOC: M LAB REF 16:58
PROVIDERS: ATTEND Nurse Practitioner Family
DX: E83.42 Hypomagnesemia (principal)

== ENCOUNTER → 2021-01-11 | Outpatient (CLI) | payer OTHER ==
[2021-01-11 13:43] LABS: ALBUMIN 3.1 GM/DL (3.2-5.2); BILIRUBIN,TOTAL 0.3 MG/DL (0.2-1.0); CALCIUM LEVEL 8.2 MG/DL (8.8-10.2); CHOLESTEROL RISK RATIO 2.489 (<5); CREATININE FOR GFR 1.36 MG/DL (0.55-1.30); GLOMERULAR FILTRATION RATE 42.1 (>45); POTASSIUM SERUM 4.4 MEQ/L (3.5-5.1); TOTAL PROTEIN 7.1 GM/DL (6.4-8.2)
== END ==
LOC: M PLALAB 11:14
PROVIDERS: ATTEND Nurse Practitioner Family
DX: I10 Essential (primary) hypertension (principal)

== ENCOUNTER 2021-08-19 16:35 | Emergency (ER) | payer OTHER ==
[~2021-08-19] VITALS: Ht 162.6 cm; Wt 87.3 kg
[~2021-08-19 16:35] MED LIST changes: +DOXY-443 PO; -DOXY1CAP62 PO
[2021-08-19 16:51] VITALS: BP 133/63
[2021-08-19] MEDS ORDERED: KETOROLAC 30 MG/ML 1ML VIAL IM ONE (17:25)
[2021-08-19] MEDS ORDERED: NORCO, ANEXSIA 5/325MG TABLET (HYDROcodone/ACETAMINOPHEN) PO ONE ×2 (19:25→20:25)
[2021-08-19] MEDS ORDERED: HYDR-3713 PO (20:21)
[2021-08-19] MEDS ORDERED: NORCO 5/325MG TABLET (BULK FOR ED) PO ONE ×2 (20:30)
== END 2021-08-19 20:50 | disposition home or self-care (01) ==
LOC: M ED 16:35 → EDBD 16:35 → M ED 20:50
DX: S82.102A Unspecified fracture of upper end of left tibia, initial encounter for closed fracture (principal); S80.212A Abrasion, left knee, initial encounter; S80.211A Abrasion, right knee, initial encounter; W01.0XXA Fall on same level from slipping, tripping and stumbling without subsequent striking against object, initial encounter; Y92.009 Unspecified place in unspecified non-institutional (private) residence as the place of occurrence of the external cause; Y93.9 Activity, unspecified; Y99.9 Unspecified external cause status; M81.0 Age-related osteoporosis without current pathological fracture; E11.9 Type 2 diabetes mellitus without complications; I10 Essential (primary) hypertension; Z88.6 Allergy status to analgesic agent; Z79.899 Other long term (current) drug therapy; Z79.4 Long term (current) use of insulin
CPT/HCPCS: 73564; 73590; 96372; 99284; J1885

== ENCOUNTER 2021-08-25 15:43 | Inpatient (IN) | payer OTHER ==
[~2021-08-25] VITALS: Ht 162.6 cm; Wt 87.5 kg
[~2021-08-25 15:43] MED LIST changes: +HYDR-3713 PO
[2021-08-25] MEDS ORDERED: GLUCOSE 4GM CHEW TABLET PO PRN (19:15)
[2021-08-25] MEDS ORDERED: DEXTROSE 50% 50 ML SYRINGE IV PRN (19:15)
[2021-08-25] MEDS ORDERED: GLUCAGON INJ 1MG VIAL SC PRN (19:15)
[2021-08-25] MEDS ORDERED: NORCO, ANEXSIA 5/325MG TABLET (HYDROcodone/ACETAMINOPHEN) PO ONE (19:35)
[2021-08-25 19:43] LABS: BASO # 0.1 10^3/uL (0.0-0.2); BASO % 0.5 % (0.0-1.0); EOS # 0.2 10^3/uL (0.0-0.5); EOS % 1.6 % (0.0-3.0); HEMATOCRIT 32.6 % (36.0-47.0); HEMOGLOBIN 10.6 g/dl (12.0-15.5); LYMPH # 3.9 10^3/uL (1.5-5.0); LYMPH % 26.1 % (24.0-44.0); MEAN CORPUSCULAR HEMOGLOBIN 30.2 pg (27.0-33.0); MEAN CORPUSCULAR HGB CONC 32.5 g/dl (32.0-36.5); MEAN CORPUSCULAR VOLUME 92.9 fl (80.0-96.0); MONO % 6.8 % (2.0-8.0); NEUTROPHILS # 9.6 10^3/uL (1.5-8.5); NEUTROPHILS % 64.6 % (36.0-66.0); PLATELET COUNT, AUTOMATED 230 10^3/uL (150-450); RED BLOOD COUNT 3.51 10^6/uL (4.00-5.40); WHITE BLOOD COUNT 14.9 10^3/uL (4.0-10.0)
[2021-08-25] MEDS ORDERED: NORCO, ANEXSIA 5/325MG TABLET (HYDROcodone/ACETAMINOPHEN) PO PRN (19:45)
[2021-08-25] MEDS ORDERED: MORPHINE 2 MG/ML 1ML VIAL IV PRN (19:45)
[2021-08-25] MEDS ORDERED: ACETAMINOPHEN TAB 650MG DOSE (2X325MG) PO PRN (19:45)
[2021-08-25] MEDS ORDERED: ONDANSETRON 4MG/2ML VIAL IV PRN (19:45)
[2021-08-25 19:56] LABS: INR 1.03; PROTHROMBIN TIME 13.9 SECONDS (12.7-14.5)
[2021-08-25] MEDS ORDERED: DULA3PEN SUBQ (19:57)
[2021-08-25] MEDS ORDERED: ADME100I2 SC (19:57)
[2021-08-25] MEDS ORDERED: TRAZ-252 PO (19:57)
[2021-08-25] MEDS ORDERED: BASA100I SUBQ (19:57)
[2021-08-25] MEDS ORDERED: PANT20TA51 PO (19:57)
[2021-08-25] MEDS ORDERED: BASA100I SC (19:57)
[2021-08-25 20:00] LABS: CALCIUM LEVEL 8.5 MG/DL (8.8-10.2); CREATININE FOR GFR 1.4 MG/DL (0.55-1.30); GLOMERULAR FILTRATION RATE 40.7 (>45); POTASSIUM SERUM 4.2 MEQ/L (3.5-5.1)
[2021-08-25] MEDS ORDERED: HOME MED LIST COMPLETE! XX SCH (20:00)
[2021-08-25 20:04] LABS: RSV AMPLIFICATION NEGATIVE (NEGATIVE)
[2021-08-25 20:13] LABS: HEMOGLOBIN A1c 8.9 %
[2021-08-25] MEDS ORDERED: traZODone 50 MG TAB PO PRN (20:50)
[2021-08-25] MEDS ORDERED: DOCUSATE SODIUM 100MG CAPSULE PO PRN (21:50)
[2021-08-25] MEDS: MAGNESIUM OXIDE 400MG TAB (MAG-OX) PO SCH (21:55)
[2021-08-25] MEDS: GABAPENTIN 100 MG CAP PO SCH (21:55)
[2021-08-25] MEDS: LEVEMIR (INSULIN DETEMIR) 1 UNITS/0.01ML SC SCH (21:55)
[2021-08-25 22:50] VITALS: BP 148/80
[2021-08-25 23:30] VITALS: BP 148/80
[2021-08-25] MEDS ORDERED: LR 1,000 ML IV SCH (23:30)
[2021-08-26] VITALS (9 sets, daily range): BP systolic 108–151; BP diastolic 59–78; O2SAT 92–93
[2021-08-26] MEDS: HumaLOG INSULIN (NovoLOG) PER UNIT SC SCH ×4 (00:37→17:50)
[2021-08-26] MEDS ORDERED: HumaLOG INSULIN (NovoLOG) PER UNIT SC ONE ×2 (03:00→22:00)
[2021-08-26 05:27] LABS: INR 1.01; PROTHROMBIN TIME 13.7 SECONDS (12.7-14.5)
[2021-08-26 05:28] LABS: PARTIAL THROMBOPLASTIN TIME 32.1 SECONDS (25.9-37.0)
[2021-08-26] MEDS ORDERED: HEPARIN SOD (PORCINE) 5000UNITS/ML 1ML VIAL/SYRINGE SQ SCH (06:00)
[2021-08-26] MEDS ORDERED: MIDAZOLAM INJ 2MG/2ML VIAL (J2250 PER 1MG) As Ordered ONE (07:50)
[2021-08-26] MEDS ORDERED: LIDOCAINE 2% 100MG/5ML SDV (FOR ANES.) As Ordered ONE (07:50)
[2021-08-26] MEDS ORDERED: propofoL 200 MG/20 ML VIAL As Ordered ONE ×2 (07:50→09:42)
[2021-08-26] MEDS ORDERED: ROCURONIUM BROMIDE 50 MG/5 ML VIAL As Ordered ONE ×2 (07:50→09:25)
[2021-08-26] MEDS ORDERED: fentaNYL 100 MCG/2 ML INJECTION As Ordered ONE (07:51)
[2021-08-26 08:28] LABS: BASO # 0.1 10^3/uL (0.0-0.2); BASO % 0.7 % (0.0-1.0); EOS # 0.3 10^3/uL (0.0-0.5); EOS % 2.5 % (0.0-3.0); HEMATOCRIT 31.7 % (36.0-47.0); HEMOGLOBIN 10.3 g/dl (12.0-15.5); LYMPH # 5.1 10^3/uL (1.5-5.0); LYMPH % 37.6 % (24.0-44.0); MEAN CORPUSCULAR HEMOGLOBIN 29.8 pg (27.0-33.0); MEAN CORPUSCULAR HGB CONC 32.5 g/dl (32.0-36.5); MEAN CORPUSCULAR VOLUME 91.6 fl (80.0-96.0); MONO % 7.3 % (2.0-8.0); NEUTROPHILS % 51.6 % (36.0-66.0); PLATELET COUNT, AUTOMATED 233 10^3/uL (150-450); RED BLOOD COUNT 3.46 10^6/uL (4.00-5.40); WHITE BLOOD COUNT 13.5 10^3/uL (4.0-10.0)
[2021-08-26 08:33] LABS: ALBUMIN 2.8 GM/DL (3.2-5.2); BILIRUBIN,TOTAL 0.4 MG/DL (0.2-1.0); CALCIUM LEVEL 8.7 MG/DL (8.8-10.2); CREATININE FOR GFR 1.24 MG/DL (0.55-1.30); GLOMERULAR FILTRATION RATE 46.8 (>45); MAGNESIUM LEVEL 1.5 MG/DL (1.8-2.4); POTASSIUM SERUM 3.7 MEQ/L (3.5-5.1); TOTAL PROTEIN 6.7 GM/DL (6.4-8.2)
[2021-08-26] MEDS ORDERED: ePHEDrine SULFATE 25 MG/5 ML(5MG/ML) SYRINGE As Ordered ONE (08:58)
[2021-08-26] MEDS ORDERED: PHENYLephrine 500MCG 5ML (100MCG/ML) SYRINGE As Ordered ONE (08:58)
[2021-08-26] MEDS: DOXAZOSIN MESYLATE 4 MG TAB PO SCH (09:00)
[2021-08-26] MEDS ORDERED: METOCLOPRAMIDE INJ 10MG/2ML VIAL (J2765 PER 1) As Ordered ONE (09:06)
[2021-08-26] MEDS ORDERED: ONDANSETRON 4MG/2ML VIAL As Ordered ONE (09:06)
[2021-08-26] MEDS ORDERED: SUGAMMADEX SODIUM 500 MG/5 ML VIAL (BRIDION) As Ordered ONE (09:06)
[2021-08-26] MEDS ORDERED: ceFAZolin 2 GM/D5W 50 ML IV BAG (J0690 PER 500MG) IV ONE (09:07)
[2021-08-26] MEDS ORDERED: HYDROmorphone HCL 2MG/ML 1ML VIAL As Ordered ONE (09:13)
[2021-08-26] MEDS ORDERED: hydrALAZINE 20MG/ML 1ML VIAL (J0360 PER 20MG) As Ordered ONE (09:37)
[2021-08-26] MEDS ORDERED: KETOROLAC 60MG 2ML VIAL As Ordered ONE (10:32)
[2021-08-26] MEDS ORDERED: ONDANSETRON 4MG/2ML VIAL IV PRN ×2 (11:05→11:20)
[2021-08-26] MEDS ORDERED: diphenhydrAMINE 50MG/ML VIAL (J1200) IV PRN (11:05)
[2021-08-26] MEDS ORDERED: zolPIDEM TARTRATE 5 MG TAB PO PRN (11:05)
[2021-08-26] MEDS ORDERED: SENNA 8.6 MG TAB (SENOKOT) PO PRN (11:05)
[2021-08-26] MEDS ORDERED: oxyCODONE 5MG TAB PO PRN (11:05)
[2021-08-26] MEDS ORDERED: NORCO, ANEXSIA 5/325MG TABLET (HYDROcodone/ACETAMINOPHEN) PO PRN (11:20)
[2021-08-26] MEDS ORDERED: fentaNYL 100 MCG/2 ML INJECTION IV PRN (11:20)
[2021-08-26] MEDS ORDERED: LR 1,000 ML IV SCH (11:20)
[2021-08-26] MEDS: atenoloL 25 MG TAB PO SCH (11:33)
[2021-08-26] MEDS: CINACALCET 30 MG TAB (SENSIPAR) PO SCH (12:31)
[2021-08-26] MEDS: PANTOPRAZOLE 20 MG TAB PO SCH (12:31)
[2021-08-26] MEDS: DOCUSATE SODIUM 100MG CAPSULE PO SCH ×2 (12:31→20:29)
[2021-08-26] MEDS: CALCITRIOL 0.25 MCG CAP (S0169) PO SCH (12:32)
[2021-08-26] MEDS: ATORVASTATIN 10 MG TAB PO SCH (12:32)
[2021-08-26] MEDS: MAGNESIUM OXIDE 400MG TAB (MAG-OX) PO SCH ×3 (12:32→20:29)
[2021-08-26] MEDS: GABAPENTIN 100 MG CAP PO SCH ×3 (12:33→20:28)
[2021-08-26] MEDS: hydroCHLOROthiazide 12.5 MG CAPSULE PO SCH (12:33)
[2021-08-26] MEDS: MIRALAX *UNIT DOSE* 17GM PACKET PO SCH (12:33)
[2021-08-26] MEDS: MAG SULF 1GM/100ML (MAG RUN) 1 GM in IV 1 EA IV SCH ×2 (12:34→14:03)
[2021-08-26] MEDS: MORPHINE 4 MG/ML 1ML VIAL/SYRINGE IV PRN (14:03)
[2021-08-26] MEDS: ceFAZolin SOD 1 GM in D5W MINI-BAG PLUS 50 ML IV SCH (16:39)
[2021-08-26] MEDS ORDERED: HumaLOG INSULIN (NovoLOG) PER UNIT SC SCH (21:00)
[2021-08-26] MEDS: LEVEMIR (INSULIN DETEMIR) 1 UNITS/0.01ML SC SCH (21:41)
[2021-08-27] VITALS (9 sets, daily range): BP systolic 117–165; BP diastolic 57–82; O2SAT 86–95
[2021-08-27] MEDS: ceFAZolin SOD 1 GM in D5W MINI-BAG PLUS 50 ML IV SCH ×2 (00:23→08:11)
[2021-08-27] MEDS: MORPHINE 4 MG/ML 1ML VIAL/SYRINGE IV PRN ×5 (00:23→20:48)
[2021-08-27] MEDS ORDERED: **hydrALAZINE** 10 MG TAB PO ONE (02:00)
[2021-08-27 05:10] LABS: BASO # 0.1 10^3/uL (0.0-0.2); BASO % 0.6 % (0.0-1.0); EOS # 0.2 10^3/uL (0.0-0.5); EOS % 1.4 % (0.0-3.0); HEMOGLOBIN 9.8 g/dl (12.0-15.5); LYMPH # 4.4 10^3/uL (1.5-5.0); LYMPH % 29.8 % (24.0-44.0); MEAN CORPUSCULAR HEMOGLOBIN 29.6 pg (27.0-33.0); MEAN CORPUSCULAR HGB CONC 32.7 g/dl (32.0-36.5); MEAN CORPUSCULAR VOLUME 90.6 fl (80.0-96.0); MONO # 1.2 10^3/uL (0.0-0.8); MONO % 7.9 % (2.0-8.0); NEUTROPHILS # 8.8 10^3/uL (1.5-8.5); NEUTROPHILS % 59.9 % (36.0-66.0); PLATELET COUNT, AUTOMATED 241 10^3/uL (150-450); RED BLOOD COUNT 3.31 10^6/uL (4.00-5.40); WHITE BLOOD COUNT 14.6 10^3/uL (4.0-10.0)
[2021-08-27 05:33] LABS: CALCIUM LEVEL 8.6 MG/DL (8.8-10.2); CREATININE FOR GFR 1.35 MG/DL (0.55-1.30); GLOMERULAR FILTRATION RATE 42.4 (>45); MAGNESIUM LEVEL 1.9 MG/DL (1.8-2.4); POTASSIUM SERUM 4.5 MEQ/L (3.5-5.1)
[2021-08-27] MEDS: atenoloL 25 MG TAB PO SCH (05:44)
[2021-08-27] MEDS: LEVEMIR (INSULIN DETEMIR) 1 UNITS/0.01ML SC SCH ×2 (08:11→20:46)
[2021-08-27] MEDS: HumaLOG INSULIN (NovoLOG) PER UNIT SC SCH ×4 (08:14→20:46)
[2021-08-27] MEDS: PANTOPRAZOLE 20 MG TAB PO SCH (08:14)
[2021-08-27] MEDS: hydroCHLOROthiazide 12.5 MG CAPSULE PO SCH (08:15)
[2021-08-27] MEDS: CINACALCET 30 MG TAB (SENSIPAR) PO SCH (08:15)
[2021-08-27] MEDS: DOCUSATE SODIUM 100MG CAPSULE PO SCH ×2 (08:15→20:46)
[2021-08-27] MEDS: GABAPENTIN 100 MG CAP PO SCH ×3 (08:16→20:47)
[2021-08-27] MEDS: ATORVASTATIN 10 MG TAB PO SCH (08:16)
[2021-08-27] MEDS: MAGNESIUM OXIDE 400MG TAB (MAG-OX) PO SCH ×3 (08:16→20:47)
[2021-08-27] MEDS: CALCITRIOL 0.25 MCG CAP (S0169) PO SCH (08:16)
[2021-08-27] MEDS: DOXAZOSIN MESYLATE 4 MG TAB PO SCH (08:16)
[2021-08-27] MEDS: MIRALAX *UNIT DOSE* 17GM PACKET PO SCH (08:16)
[2021-08-27] MEDS: oxyCODONE 5MG TAB PO PRN ×2 (10:35→15:11)
[2021-08-27] MEDS ORDERED: ENOXAPARIN 40MG/0.4ML SYRINGE (J1650 PER 10MG) SC ONE (11:00)
[2021-08-27] MEDS: DULoxetine 20 MG CAP (CYMBALTA) PO SCH (15:11)
[2021-08-28] MEDS: MORPHINE 4 MG/ML 1ML VIAL/SYRINGE IV PRN ×2 (01:31→15:12)
[2021-08-28 02:00] VITALS: BP 152/52
[2021-08-28] MEDS: oxyCODONE 5MG TAB PO PRN ×2 (04:04→20:52)
[2021-08-28 06:00] VITALS: BP 125/67
[2021-08-28 07:51] LABS: BASO # 0.1 10^3/uL (0.0-0.2); BASO % 0.8 % (0.0-1.0); EOS # 0.6 10^3/uL (0.0-0.5); EOS % 3.7 % (0.0-3.0); HEMATOCRIT 29.7 % (36.0-47.0); HEMOGLOBIN 9.3 g/dl (12.0-15.5); LYMPH # 4.8 10^3/uL (1.5-5.0); LYMPH % 32.1 % (24.0-44.0); MEAN CORPUSCULAR HGB CONC 31.3 g/dl (32.0-36.5); MEAN CORPUSCULAR VOLUME 92.5 fl (80.0-96.0); MONO # 1.2 10^3/uL (0.0-0.8); MONO % 8.1 % (2.0-8.0); NEUTROPHILS # 8.2 10^3/uL (1.5-8.5); NEUTROPHILS % 54.9 % (36.0-66.0); PLATELET COUNT, AUTOMATED 247 10^3/uL (150-450); RED BLOOD COUNT 3.21 10^6/uL (4.00-5.40); WHITE BLOOD COUNT 14.9 10^3/uL (4.0-10.0)
[2021-08-28 08:10] LABS: CALCIUM LEVEL 8.7 MG/DL (8.8-10.2); CREATININE FOR GFR 1.29 MG/DL (0.55-1.30); GLOMERULAR FILTRATION RATE 44.7 (>45); POTASSIUM SERUM 4.6 MEQ/L (3.5-5.1)
[2021-08-28] MEDS: MIRALAX *UNIT DOSE* 17GM PACKET PO SCH (08:19)
[2021-08-28] MEDS: PANTOPRAZOLE 20 MG TAB PO SCH (08:21)
[2021-08-28] MEDS: ATORVASTATIN 10 MG TAB PO SCH (08:21)
[2021-08-28] MEDS: CINACALCET 30 MG TAB (SENSIPAR) PO SCH (08:21)
[2021-08-28] MEDS: GABAPENTIN 100 MG CAP PO SCH ×3 (08:21→20:52)
[2021-08-28] MEDS: DOCUSATE SODIUM 100MG CAPSULE PO SCH ×2 (08:21→20:52)
[2021-08-28] MEDS: CALCITRIOL 0.25 MCG CAP (S0169) PO SCH (08:21)
[2021-08-28] MEDS: MAGNESIUM OXIDE 400MG TAB (MAG-OX) PO SCH ×3 (08:21→20:52)
[2021-08-28] MEDS: LEVEMIR (INSULIN DETEMIR) 1 UNITS/0.01ML SC SCH ×2 (08:22→20:53)
[2021-08-28] MEDS: DOXAZOSIN MESYLATE 4 MG TAB PO SCH (08:23)
[2021-08-28] MEDS: hydroCHLOROthiazide 12.5 MG CAPSULE PO SCH (08:23)
[2021-08-28] MEDS: ENOXAPARIN 40MG/0.4ML SYRINGE (J1650 PER 10MG) SC SCH (08:23)
[2021-08-28] MEDS: atenoloL 25 MG TAB PO SCH (08:23)
[2021-08-28 10:00] VITALS: BP 121/72
[2021-08-28] MEDS: HumaLOG INSULIN (NovoLOG) PER UNIT SC SCH ×4 (10:11→20:57)
[2021-08-28 14:00] VITALS: BP 161/72
[2021-08-28 18:00] VITALS: BP 124/74
[2021-08-28 22:00] VITALS: BP 139/72
[2021-08-29 02:00] VITALS: BP 157/78
[2021-08-29] MEDS: oxyCODONE 5MG TAB PO PRN (02:01)
[2021-08-29 06:00] VITALS: BP 155/79
[2021-08-29 07:44] LABS: BASO # 0.1 10^3/uL (0.0-0.2); BASO % 0.7 % (0.0-1.0); EOS # 0.4 10^3/uL (0.0-0.5); EOS % 2.7 % (0.0-3.0); HEMATOCRIT 31.4 % (36.0-47.0); HEMOGLOBIN 9.9 g/dl (12.0-15.5); LYMPH # 4.1 10^3/uL (1.5-5.0); MEAN CORPUSCULAR HEMOGLOBIN 28.7 pg (27.0-33.0); MEAN CORPUSCULAR HGB CONC 31.5 g/dl (32.0-36.5); MONO # 1.1 10^3/uL (0.0-0.8); NEUTROPHILS # 7.9 10^3/uL (1.5-8.5); NEUTROPHILS % 58.2 % (36.0-66.0); PLATELET COUNT, AUTOMATED 273 10^3/uL (150-450); RED BLOOD COUNT 3.45 10^6/uL (4.00-5.40); WHITE BLOOD COUNT 13.6 10^3/uL (4.0-10.0)
[2021-08-29 08:06] LABS: CALCIUM LEVEL 9.5 MG/DL (8.8-10.2); CREATININE FOR GFR 1.15 MG/DL (0.55-1.30); GLOMERULAR FILTRATION RATE 51.1 (>45); POTASSIUM SERUM 4.2 MEQ/L (3.5-5.1)
[2021-08-29 08:22] VITALS: BP 155/79
[2021-08-29] MEDS: DOCUSATE SODIUM 100MG CAPSULE PO SCH (08:26)
[2021-08-29] MEDS: MIRALAX *UNIT DOSE* 17GM PACKET PO SCH (08:26)
[2021-08-29] MEDS: GABAPENTIN 100 MG CAP PO SCH ×2 (08:27→15:37)
[2021-08-29] MEDS: hydroCHLOROthiazide 12.5 MG CAPSULE PO SCH (08:27)
[2021-08-29] MEDS: MAGNESIUM OXIDE 400MG TAB (MAG-OX) PO SCH ×2 (08:27→15:36)
[2021-08-29] MEDS: DULoxetine 20 MG CAP (CYMBALTA) PO SCH (08:27)
[2021-08-29] MEDS: CALCITRIOL 0.25 MCG CAP (S0169) PO SCH (08:28)
[2021-08-29] MEDS: ATORVASTATIN 10 MG TAB PO SCH (08:28)
[2021-08-29] MEDS: PANTOPRAZOLE 20 MG TAB PO SCH (08:28)
[2021-08-29] MEDS: CINACALCET 30 MG TAB (SENSIPAR) PO SCH (08:28)
[2021-08-29] MEDS: atenoloL 25 MG TAB PO SCH (08:28)
[2021-08-29 08:29] VITALS: BP 155/82
[2021-08-29] MEDS: ENOXAPARIN 40MG/0.4ML SYRINGE (J1650 PER 10MG) SC SCH (08:29)
[2021-08-29] MEDS: DOXAZOSIN MESYLATE 4 MG TAB PO SCH (08:29)
[2021-08-29] MEDS: HumaLOG INSULIN (NovoLOG) PER UNIT SC SCH ×2 (08:30→12:29)
[2021-08-29] MEDS: LEVEMIR (INSULIN DETEMIR) 1 UNITS/0.01ML SC SCH (08:31)
[2021-08-29 10:00] VITALS: BP 143/86
[2021-08-29] MEDS ORDERED: OXYC-517 PO (13:58)
[2021-08-29 14:00] VITALS: BP 108/62
== END 2021-08-29 17:00 | disposition home health service (06) | DRG 313 ==
LOC: M ED 15:43 → M ED INP 19:43 → ENRESERV 22:19 → M MSPAV 22:50
PROVIDERS: ADMIT Internal Medicine; ATTEND Family Medicine
PROC: 0QSH36Z Reposition Left Tibia with Intramedullary Internal Fixation Device, Percutaneous Approach (ICD-10-PCS; principal; 2021-08-26 08:30)
DX: S82.102A Unspecified fracture of upper end of left tibia, initial encounter for closed fracture (principal); Q60.3 Renal hypoplasia, unilateral; E11.22 Type 2 diabetes mellitus with diabetic chronic kidney disease; I12.9 Hypertensive chronic kidney disease with stage 1 through stage 4 chronic kidney disease, or unspecified chronic kidney disease; M54.9 Dorsalgia, unspecified; W18.30XA Fall on same level, unspecified, initial encounter; Y92.89 Other specified places as the place of occurrence of the external cause; Y93.89 Activity, other specified; Y99.8 Other external cause status; Z79.4 Long term (current) use of insulin; Z79.899 Other long term (current) drug therapy; Z88.5 Allergy status to narcotic agent; K21.9 Gastro-esophageal reflux disease without esophagitis; N18.30 Chronic kidney disease, stage 3 unspecified; E66.9 Obesity, unspecified; Z68.33 Body mass index [BMI] 33.0-33.9, adult

== ENCOUNTER → 2021-09-07 | Outpatient (CLI) | payer OTHER ==
[~2021-09-07] MED LIST changes: +ADME100I2 SC; +BASA100I SC; +BASA100I SUBQ; +DULA3PEN SUBQ; +OXYC-517 PO; +PANT20TA51 PO; +TRAZ-252 PO
== END ==
LOC: M SOG 13:57
PROVIDERS: ATTEND Orthopaedic Surgery Hand Surgery
DX: S82.202A Unspecified fracture of shaft of left tibia, initial encounter for closed fracture (principal); W18.30XA Fall on same level, unspecified, initial encounter; Y92.009 Unspecified place in unspecified non-institutional (private) residence as the place of occurrence of the external cause

== ENCOUNTER → 2021-09-21 | Outpatient (CLI) | payer OTHER | LOC: M SOG 08:14 | PROVIDERS: ATTEND Physician Assistant | DX: S82.202D Unspecified fracture of shaft of left tibia, subsequent encounter for closed fracture with routine healing (principal); W18.30XD Fall on same level, unspecified, subsequent encounter ==

== ENCOUNTER → 2021-10-03 | Outpatient (RCR) | payer OTHER | LOC: M PT 10:07 | PROVIDERS: ATTEND Orthopaedic Surgery Hand Surgery | DX: S82.202D Unspecified fracture of shaft of left tibia, subsequent encounter for closed fracture with routine healing (principal); W18.30XD Fall on same level, unspecified, subsequent encounter; Y92.009 Unspecified place in unspecified non-institutional (private) residence as the place of occurrence of the external cause ==

== ENCOUNTER → 2021-10-24 | Outpatient (CLI) | payer OTHER | LOC: M SOG 08:57 | PROVIDERS: ATTEND Orthopaedic Surgery Hand Surgery | DX: S82.202D Unspecified fracture of shaft of left tibia, subsequent encounter for closed fracture with routine healing (principal); W18.30XD Fall on same level, unspecified, subsequent encounter; Y92.009 Unspecified place in unspecified non-institutional (private) residence as the place of occurrence of the external cause ==

== ENCOUNTER 2021-10-31 13:43 | Outpatient (RCR) | payer OTHER | END 2021-11-02 | LOC: M PT 13:43 | PROVIDERS: ATTEND Orthopaedic Surgery Hand Surgery | DX: S82.202D Unspecified fracture of shaft of left tibia, subsequent encounter for closed fracture with routine healing (principal) ==

== ENCOUNTER → 2021-11-22 | Outpatient (CLI) | payer OTHER ==
[2021-11-22 15:52] LABS: BASO # 0.1 10^3/uL (0.0-0.2); BASO % 1.1 % (0.0-1.0); EOS # 0.5 10^3/uL (0.0-0.5); EOS % 4.4 % (0.0-3.0); HEMATOCRIT 38.2 % (36.0-47.0); LYMPH # 3.9 10^3/uL (1.5-5.0); MEAN CORPUSCULAR HEMOGLOBIN 29.3 pg (27.0-33.0); MEAN CORPUSCULAR HGB CONC 31.4 g/dl (32.0-36.5); MEAN CORPUSCULAR VOLUME 93.4 fl (80.0-96.0); MONO # 0.8 10^3/uL (0.0-0.8); MONO % 6.7 % (2.0-8.0); NEUTROPHILS # 6.8 10^3/uL (1.5-8.5); NEUTROPHILS % 55.4 % (36.0-66.0); PLATELET COUNT, AUTOMATED 332 10^3/uL (150-450); RED BLOOD COUNT 4.09 10^6/uL (4.00-5.40); WHITE BLOOD COUNT 12.2 10^3/uL (4.0-10.0)
[2021-11-22 16:17] LABS: BLOOD UREA NITROGEN 16 MG/DL (7-18); C REACTIVE PROTEIN QUANTITATIV 0.76 MG/DL (0.00-0.30); CALCIUM LEVEL 9.3 MG/DL (8.8-10.2); CARBON DIOXIDE LEVEL 29 MEQ/L (21-32); CHLORIDE LEVEL 106 MEQ/L (98-107); CREATININE FOR GFR 1.32 MG/DL (0.55-1.30); GLOMERULAR FILTRATION RATE 43.6 (>45); GLUCOSE, FASTING 154 MG/DL (70-100); POTASSIUM SERUM 5.3 MEQ/L (3.5-5.1); RHEUMATOID FACTOR QUANT < 10.0 IU/ML (<15.0); SODIUM LEVEL 139 MEQ/L (136-145)
[2021-11-22 16:50] LABS: ERYTHROCYTE SEDIMENTATION RATE 2 mm/hr (0-30)
[2021-11-24 20:07] LABS: ANA (HEP2) Negative (.)
== END ==
LOC: M PLALAB 12:59
PROVIDERS: ATTEND Nurse Practitioner Family
DX: M12.9 Arthropathy, unspecified (principal)

== ENCOUNTER → 2021-11-23 | Outpatient (CLI) | payer OTHER | LOC: M SOG 07:58 | PROVIDERS: ATTEND Orthopaedic Surgery Hand Surgery | DX: S82.202D Unspecified fracture of shaft of left tibia, subsequent encounter for closed fracture with routine healing (principal); W18.30XD Fall on same level, unspecified, subsequent encounter ==

== ENCOUNTER → 2021-11-27 | Outpatient (CLI) | payer OTHER ==
[~2021-11-27] MED LIST changes: +METH4TAB8 PO; +VITA100054 PO
== END ==
LOC: M LABSMTC 10:00
PROVIDERS: ATTEND Anesthesiology
DX: Z20.822 Contact with and (suspected) exposure to COVID-19 (principal)

== ENCOUNTER 2021-11-28 13:00 | Outpatient (RCR) | payer OTHER ==
[~2021-11-28 13:00] MED LIST changes: -METH4TAB8 PO; -VITA100054 PO
[2021-11-28] MEDS ORDERED: METH4TAB8 PO (15:00)
[2021-11-28] MEDS ORDERED: VITA100054 PO (15:01)
== END 2021-12-03 ==
LOC: M PT 13:00
PROVIDERS: ATTEND Orthopaedic Surgery Hand Surgery
DX: S82.202D Unspecified fracture of shaft of left tibia, subsequent encounter for closed fracture with routine healing (principal)

== ENCOUNTER 2021-11-29 11:27 | Day surgery (SDC) | payer OTHER ==
[~2021-11-29] VITALS: Ht 162.6 cm; Wt 86.2 kg
[~2021-11-29 11:27] MED LIST changes: +METH4TAB8 PO; +VITA100054 PO
[2021-11-29] MEDS ORDERED: LR 1,000 ML IV SCH (11:40)
[2021-11-29] MEDS ORDERED: MIDAZOLAM INJ 2MG/2ML VIAL (J2250 PER 1MG) As Ordered ONE (12:57)
[2021-11-29] MEDS ORDERED: fentaNYL 100 MCG/2 ML INJECTION As Ordered ONE (12:58)
[2021-11-29] MEDS ORDERED: BACITRACIN OINTMENT 30GM TUBE As Ordered ONE (13:02)
[2021-11-29] MEDS ORDERED: BUPIVACAINE HCL 0.25% 30ML VIAL As Ordered ONE (13:02)
[2021-11-29] MEDS ORDERED: ONDANSETRON 4MG 2ML VIAL As Ordered ONE (13:18)
[2021-11-29] MEDS ORDERED: KETOROLAC 60MG 2ML VIAL As Ordered ONE (13:19)
[2021-11-29] MEDS ORDERED: dexameTHASONE 4 MG/ML 1ML VIAL (J1100 PER 1MG) As Ordered ONE (13:19)
[2021-11-29] MEDS ORDERED: propofoL 200 MG/20 ML VIAL As Ordered ONE (13:19)
[2021-11-29 14:17] VITALS: BP 126/73
== END 2021-11-29 14:36 | disposition home or self-care (01) ==
LOC: M SDC 11:27
PROVIDERS: ATTEND Orthopaedic Surgery Hand Surgery
DX: M79.605 Pain in left leg (principal); T84.84XA Pain due to internal orthopedic prosthetic devices, implants and grafts, initial encounter; Y79.2 Prosthetic and other implants, materials and accessory orthopedic devices associated with adverse incidents
CPT/HCPCS: 20680; 76000; J1100; J1885; J2250; J2405; J3010

== ENCOUNTER → 2021-12-13 | Outpatient (CLI) | payer OTHER | LOC: M SOG 08:27 | PROVIDERS: ATTEND Physician Assistant | DX: T84.84XA Pain due to internal orthopedic prosthetic devices, implants and grafts, initial encounter (principal); Z96.89 Presence of other specified functional implants; S82.202D Unspecified fracture of shaft of left tibia, subsequent encounter for closed fracture with routine healing ==

== ENCOUNTER 2022-01-02 12:26 | Outpatient (RCR) | payer OTHER | END 2022-01-03 | LOC: M PT 12:26 | PROVIDERS: ATTEND Orthopaedic Surgery Hand Surgery | DX: S82.202D Unspecified fracture of shaft of left tibia, subsequent encounter for closed fracture with routine healing (principal); W18.30XD Fall on same level, unspecified, subsequent encounter; Y92.009 Unspecified place in unspecified non-institutional (private) residence as the place of occurrence of the external cause ==

== ENCOUNTER 2022-02-01 10:32 | Outpatient (RCR) | payer OTHER | END 2022-02-02 | LOC: M PT 10:32 | PROVIDERS: ATTEND Orthopaedic Surgery Hand Surgery | DX: S82.202D Unspecified fracture of shaft of left tibia, subsequent encounter for closed fracture with routine healing (principal); W18.30XD Fall on same level, unspecified, subsequent encounter; Y92.009 Unspecified place in unspecified non-institutional (private) residence as the place of occurrence of the external cause ==

== ENCOUNTER 2022-02-08 13:39 | Outpatient (RCR) | payer OTHER | END 2022-03-05 | LOC: M PT 13:39 | PROVIDERS: ATTEND Orthopaedic Surgery Hand Surgery | DX: S82.202D Unspecified fracture of shaft of left tibia, subsequent encounter for closed fracture with routine healing (principal); W18.30XD Fall on same level, unspecified, subsequent encounter; Y92.009 Unspecified place in unspecified non-institutional (private) residence as the place of occurrence of the external cause ==

== ENCOUNTER → 2022-02-13 | Outpatient (CLI) | payer OTHER | LOC: M SOG 08:11 | PROVIDERS: ATTEND Orthopaedic Surgery Hand Surgery | DX: T84.84XD Pain due to internal orthopedic prosthetic devices, implants and grafts, subsequent encounter (principal); Y83.1 Surgical operation with implant of artificial internal device as the cause of abnormal reaction of the patient, or of later complication, without mention of misadventure at the time of the procedure ==

== ENCOUNTER → 2022-03-14 | Outpatient (CLI) | payer OTHER ==
[2022-03-14 14:33] LABS: CHOLESTEROL RISK RATIO 2.148 (<5)
== END ==
LOC: M WUC 09:31
PROVIDERS: ATTEND Nurse Practitioner Family
DX: I10 Essential (primary) hypertension (principal)

== ENCOUNTER → 2022-05-15 | Outpatient (REF) | payer OTHER | LOC: M SFHCRHEU 14:29 | PROVIDERS: ATTEND Internal Medicine Rheumatology | DX: Z53.9 Procedure and treatment not carried out, unspecified reason (principal) ==

== ENCOUNTER → 2022-05-18 | Outpatient (CLI) | payer OTHER | LOC: M RAD 09:37 | PROVIDERS: ATTEND Internal Medicine Rheumatology | DX: R79.82 Elevated C-reactive protein (CRP) (principal) ==

== ENCOUNTER → 2022-05-18 | Outpatient (REF) | payer OTHER ==
[2022-05-18 13:45] LABS: BASO # 0.1 10^3/uL (0.0-0.2); BASO % 0.7 % (0.0-1.0); EOS # 0.5 10^3/uL (0.0-0.5); EOS % 4.1 % (0.0-3.0); HEMATOCRIT 39.3 % (36.0-47.0); HEMOGLOBIN 11.8 g/dl (12.0-15.5); LYMPH # 4.5 10^3/uL (1.5-5.0); LYMPH % 39.1 % (24.0-44.0); MEAN CORPUSCULAR HEMOGLOBIN 28.6 pg (27.0-33.0); MEAN CORPUSCULAR VOLUME 95.4 fl (80.0-96.0); MONO # 0.8 10^3/uL (0.0-0.8); MONO % 7.1 % (2.0-8.0); NEUTROPHILS # 5.6 10^3/uL (1.5-8.5); NEUTROPHILS % 48.8 % (36.0-66.0); PLATELET COUNT, AUTOMATED 301 10^3/uL (150-450); RED BLOOD COUNT 4.12 10^6/uL (4.00-5.40); WHITE BLOOD COUNT 11.6 10^3/uL (4.0-10.0)
[2022-05-18 14:02] LABS: ERYTHROCYTE SEDIMENTATION RATE 63 mm/hr (0-30)
[2022-05-18 14:17] LABS: C REACTIVE PROTEIN QUANTITATIV 0.6 MG/DL (<1.0)
[2022-05-18 14:19] LABS: ALBUMIN 3.4 G/DL (3.2-5.2); BILIRUBIN,TOTAL 0.4 MG/DL (0.3-1.2); CALCIUM LEVEL 9.1 MG/DL (8.3-10.6); CREATININE FOR GFR 1.5 MG/DL (0.55-1.30); GLOMERULAR FILTRATION RATE 37.5 (>45); POTASSIUM SERUM 5.1 MMOL/L (3.5-5.1); TOTAL PROTEIN 7.5 G/DL (5.7-8.2)
== END ==
LOC: M SFHCRHEU 10:01
PROVIDERS: ATTEND Internal Medicine Rheumatology
DX: R79.82 Elevated C-reactive protein (CRP) (principal); M79.641 Pain in right hand; M79.642 Pain in left hand

== ENCOUNTER → 2022-06-12 | Outpatient (CLI) | payer OTHER | LOC: M SOG 11:01 | PROVIDERS: ATTEND Orthopaedic Surgery Hand Surgery | DX: M79.644 Pain in right finger(s) (principal); M79.645 Pain in left finger(s) ==

== ENCOUNTER → 2022-07-12 | Outpatient (CLI) | payer OTHER | LOC: M SLEEP HO 10:30 | PROVIDERS: ATTEND Nurse Practitioner Family | DX: R06.83 Snoring (principal) ==

== ENCOUNTER → 2022-08-02 | Outpatient (CLI) | payer OTHER | LOC: M RAD 10:16 | PROVIDERS: ATTEND Nurse Practitioner Family | DX: N18.32 Chronic kidney disease, stage 3b (principal) ==

== ENCOUNTER → 2022-09-10 | Outpatient (CLI) | payer OTHER | LOC: M WHC 09:03 | PROVIDERS: ATTEND Nurse Practitioner Family | DX: Z12.31 Encounter for screening mammogram for malignant neoplasm of breast (principal) ==

== ENCOUNTER → 2023-09-18 | Outpatient (CLI) | payer OTHER ==
[~2023-09-18] MED LIST changes: -DOXA4TAB2 PO; +DOXA4TAB77 PO; +DOXY-323 PO; -DOXY-443 PO; -GABA-283 PO; +GABA-284 PO; +GLIP5TAB17 PO; -GLIP5TAB8 PO
== END ==
LOC: M WHC 10:14
PROVIDERS: ATTEND Nurse Practitioner Family
DX: Z12.31 Encounter for screening mammogram for malignant neoplasm of breast (principal)

== ENCOUNTER → 2024-01-14 | Outpatient (CLI) | payer OTHER ==
[2024-01-14 13:22] LABS: ALBUMIN 3.4 G/DL (3.2-5.2); BILIRUBIN,TOTAL 0.4 MG/DL (0.3-1.2); CALCIUM LEVEL 8.7 MG/DL (8.3-10.6); CHOLESTEROL RISK RATIO 2.5 (<5); CREATININE FOR GFR 1.25 MG/DL (0.55-1.30); GLOMERULAR FILTRATION RATE 45.9 (>45); HDL CHOLESTEROL 46.4 MG/DL (>40); LDL CHOLESTEROL 56.8 MG/DL (<100); NON-HDL-C 69.6 MG/DL; POTASSIUM SERUM 4.5 MMOL/L (3.5-5.1)
[2024-01-14 13:39] LABS: HEMOGLOBIN A1c 6.9 % (4.0-6.0)
[2024-01-14 13:57] LABS: CREATININE, URINE 114.4 MG/DL
[2024-01-14 13:59] LABS: MALB URINE SIEMENS < 3.0 MG/L; MAU/CREAT RATIO 2.6 MCG/MG (0.0-30.0)
== END ==
LOC: M PLALAB 11:00
PROVIDERS: ATTEND Nurse Practitioner Family
DX: I10 Essential (primary) hypertension (principal); E11.319 Type 2 diabetes mellitus with unspecified diabetic retinopathy without macular edema

== ENCOUNTER → 2024-09-21 | Outpatient (CLI) | payer OTHER ==
[~2024-09-21] MED LIST changes: +D31000CA5 PO; -DOXY-323 PO; +DOXY-441 PO; -VITA100054 PO
== END ==
LOC: M WHC 10:16
PROVIDERS: ATTEND Nurse Practitioner Family
DX: Z12.31 Encounter for screening mammogram for malignant neoplasm of breast (principal)

== ENCOUNTER → 2024-11-20 | Outpatient (REF) | payer OTHER ==
[~2024-11-20] MED LIST changes: +LISI40TA10 PO; -LISI40TA4 PO
[2024-11-20 17:51] LABS: ESTIMATED AVERAGE GLUCOSE 137.0 MG/DL (60-110)
== END ==
LOC: M LAB REF 17:17
PROVIDERS: ATTEND Nurse Practitioner Family
DX: E11.22 Type 2 diabetes mellitus with diabetic chronic kidney disease (principal)

== ENCOUNTER → 2025-01-11 | Outpatient (CLI) | payer MEDICARE ==
[2025-01-11 13:19] LABS: BASO # 0.1 10^3/uL (0.0-0.2); BASO % 0.9 % (0.0-1.0); EOS # 0.3 10^3/uL (0.0-0.5); EOS % 2.3 % (0.0-3.0); LYMPH # 4.9 10^3/uL (1.5-5.0); LYMPH % 45.8 % (24.0-44.0); MONO # 0.8 10^3/uL (0.0-0.8); MONO % 7.2 % (2.0-8.0); NEUTROPHILS # 4.7 10^3/uL (1.5-8.5); NEUTROPHILS % 43.6 % (36.0-66.0); PLATELET COUNT, AUTOMATED 261 10^3/uL (150-450)
[2025-01-11 13:55] LABS: CHOLESTEROL LEVEL 127.0 MG/DL (<200); CHOLESTEROL RISK RATIO 2.43 (<5); LDL CHOLESTEROL 58.4 MG/DL (<100); NON-HDL-C 74.8 MG/DL; TRIGLYCERIDES LEVEL 82.0 MG/DL (<150)
== END ==
LOC: M WUC 09:53
PROVIDERS: ATTEND Nurse Practitioner Family
DX: I10 Essential (primary) hypertension (principal)